=== PATIENT | female | born 1990 | race Caucasian/White ===

== ENCOUNTER 2018-11-03 12:04 | Emergency (ER) | payer BC, SELFPAY ==
--- NOTE | 2018-11-03 12:07 | ED.GENADUL_ITS ---
Discharge Plan Disposition Patient Disposition: HOME Condition: Stable Discharge Details Chief Complaint: AnimalBite Clinical Impression: Dog bite Primary Care Provider: None,None ED Provider: Leeanna Lewis Home Meds and New Rx's Prescriptions: New amoxicillin-pot clavulanate [Augmentin] 875-125 mg tablet 1 tab PO BID 10 Days Qty: 20 RF: 0 Discharge Instructions Instructions: Animal Bite (ED) Additional Instructions: Take the augmentin as directed until finished. Alternate tylenol and motrin as needed and directed for pain. Follow up with your primary care doctor next week for re-evaluation. Return to the emergency department with any worsening or new concerning symptoms of fever, increased pain, redness, or swelling. Discharge Data Discharge Date/Time-TO BE ENTERED AT DEPARTURE: 11/03/18 12:55 Discharge Physician: Leeanna Lewis Medical Decision Making 28-year-old female with history of Crohn's disease who presents with multiple dog bites to her left hand and forearm sustained this morning. She states her dog is up-to-date on his shots. The dog bite was provoked as she was attempting to break apart 2 dogs. She denies any fever. She denies any known foreign body. Multiple wounds noted along a linear fashion extending from fifth metacarpal to left elbow. Wounds are superficial with no active bleeding. There is no bony deformity, evidence of cellulitis or obvious foreign body. Neurovascularly intact. She is declining x-ray here to assess for foreign body. Wounds were irrigated and dressed. She was given Augmentin as well as a tetanus. She was advised to keep wounds clean and dry, apply topical antibiotic ointment as needed, follow-up with primary care doctor for reevaluation and to return here at any time if worse. HPI General Mode of arrival: ambulatory . Date/Time Provider Initiated Documentation: 11/03/18 12:05 . Limitations to Documentation: no limitations . Information obtained by: patient . HPI Narrative: Patient is a 28-year-old female who presents to the ED w/ a c/o multiple small puncture wounds from her dog on her left forearm sustained just prior to arrival. Patient states 1 of her dogs and heat and her small puppy was fighting with another dog and she attempted to break this up and sustained multiple small puncture wounds to her left medial dorsal hand and forearm. She is unsure of her last tetanus. She denies any history of allergies. She denies any known history of small teeth embedded. Related Data Home Medications Medication Instructions Recorded Confirmed amoxicillin-pot clavulanate 1 tab PO BID 10 Days #20 tab 11/03/18 [Augmentin] Previous Rx's Medication Instructions Recorded amoxicillin-pot clavulanate 1 tab PO BID 10 Days #20 tab 11/03/18 [Augmentin] Allergies Allergy/AdvReac Type Severity Reaction Status Date / Time No Known Allergies Allergy Unverified 11/03/18 12:25 Review of Systems Review of Systems All systems reviewed & are unremarkable except as noted in HPI and below PFSH Medical History Crohn's disease (Chronic) Surgical History Abdominal cyst (Acute) due to crohn's disease, w/ resection History of abdominal surgery (Acute) for removal of coin Social History Smoking/Tobacco Use Status: Never Alcohol Intake: never Drug use: Never Substance use type: does not use Do you feel safe at home: Yes Do you feel safe in your relationship?: Yes Exam Const General: cooperative, healthy appearing and no acute distress HENMT Head: normal to inspection Mouth: oral mucosae normal Eyes General: appearance normal, both eyes and all related structures Neck Neck: normal visual inspection Resp Effort & Inspection: normal respiratory effort and able to speak in complete sentences Cardio Rate: regular rate Skin General skin exam: no rashes or lesions noted Neuro General: alert, awake and oriented x3 Motor: muscle tone normal throughout and strength 5/5 throughout Other: Normal radial/ulnar/median nerve motor function of left hand. Normal muscle strength of biceps and triceps. Motor/sensory grossly intact. Extrem Elbow/forearm/wrist images: 1. 4-5 small superficial puncture wounds approximately 1 to 3 mm in size extending from left dorsal hand overlying fifth metacarpal up to left lateral elbow along the distribution indicated. There is no obvious foreign body, erythema, edema, ecchymosis, induration, fluctuance drainage or bleeding. Other: Left radial and ulnar pulses intact. Cap refill less than 2 seconds. No palpable foreign bodies noted. Psych Appearance: grossly normal Affect: normal affect
[2018-11-03 12:11] VITALS: BP 112/64; PULSE 75; RESP 16; TEMP 36.6; O2SAT 98
--- NOTE | 2018-11-07 07:36 | NUR.NOTE ---
Animal Bite Form faxed to [facility] Clerk's Office [phone]. Nursing Note:
== END 2018-11-03 12:55 | disposition home or self-care (01) ==
LOC: ER 12:44
PROVIDERS: Emergency Provider Physician Assistant
DX: S61.432A Puncture wound without foreign body of left hand, initial encounter (principal); S51.832A Puncture wound without foreign body of left forearm, initial encounter; W54.0XXA Bitten by dog, initial encounter
CPT/HCPCS: 90471; 99284; 99283

== ENCOUNTER 2020-03-13 01:19 | Outpatient (CLI) | payer SELFPAY ==
--- NOTE | 2020-03-13 | DI.US_ITS ---
EXAM: US HERNIA CLINICAL HISTORY: GROIN,INGUINAL MASS, R19.09 TECHNIQUE: Ultrasound performed using standard protocol. COMPARISON: No exams were available for comparison FINDINGS: Ultrasound examination the inguinal region was performed bilaterally to evaluate the possibility of h ernia. No hernia identified. Unremarkable appearing inguinal lymph nodes are noted bilaterally. IMPRESSION: No evidence of inguinal hernia. If there is a high clinical suspicion of hernia additional evaluatio n with CT could be obtained. DATA REPOSITORY:
== END 2020-03-13 01:39 ==
PROVIDERS: Visit Provider Registered Nurse Lactation Consultant
DX: R19.09 Other intra-abdominal and pelvic swelling, mass and lump (principal)
CPT/HCPCS: 76857

== ENCOUNTER 2022-03-16 02:10 | Outpatient (CLI) | payer MEDICAID, SELFPAY ==
--- NOTE | 2022-03-16 | DI.US_ITS ---
Exam(s) US HERNIA EXAM: US HERNIA CLINICAL HISTORY: MASS RT INGUINAL REGION, R19.09, 0.5 X 3 CM ROPE LIKE MASS. TECHNIQUE: Ultrasound was performed using standard protocol. COMPARISON: US US HERNIA from 03/13/2020 FINDINGS: Sonographic assessment utilizing grayscale and color Doppler imaging was performed and targeted to th e area of clinical concern. No evidence of hernia at this level. Main finding or multiple slightly prominent lymph nodes which r laurie up to 2.4 cm size. Exhibit normal configuration with preserved fatty hilum. These do not appea r grossly pathologic. IMPRESSION: Multiple slightly enlarged-probable reactive lymph nodes in the right groin, this corresponding to th e palpable finding. DATA REPOSITORY:
== END 2022-03-16 02:30 ==
PROVIDERS: Visit Provider Advanced Practice Midwife
DX: R59.0 Localized enlarged lymph nodes (principal)
CPT/HCPCS: 76857